=== PATIENT | female | born 1995 | race Caucasian/White ===

== ENCOUNTER 2018-01-28 15:03 | Emergency (ER) | payer OTHER ==
[~2018-01-28] VITALS: Ht 157.5 cm; Wt 95.8 kg
[~2018-01-28 15:03] MED LIST: ALBUAER3 INH; CIPR0.3S RIGHT EAR; IBUP1TAB7 PO; ROBA750T PO; SYMB160A INH
[2018-01-28 15:11] VITALS: BP 137/75; PULSE 93; RESP 16; TEMP 99.4; O2SAT 97
[2018-01-28] MEDS ORDERED: PREN29TA PO (15:36)
[2018-01-28] MEDS ORDERED: ZOLO25TA PO (15:36)
[2018-01-28] MEDS ORDERED: LORA0.5T PO (15:36)
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
[2018-01-28] MEDS ORDERED: IBUP1TAB7 PO (17:43)
[2018-01-28] MEDS ORDERED: CYCL10TA PO (17:43)
== END 2018-01-28 18:07 | disposition home or self-care (01) ==
LOC: PHEFT 15:03
DX: S16.1XXA Strain of muscle, fascia and tendon at neck level, initial encounter (principal); S29.019A Strain of muscle and tendon of unspecified wall of thorax, initial encounter; J45.909 Unspecified asthma, uncomplicated; F41.9 Anxiety disorder, unspecified; M51.34 Other intervertebral disc degeneration, thoracic region; V43.52XA Car driver injured in collision with other type car in traffic accident, initial encounter; Z79.899 Other long term (current) drug therapy
CPT/HCPCS: 72072; 72110; 72125; 84703; 99285